=== PATIENT | male | born 2000 | race Caucasian/White ===

== ENCOUNTER 2023-07-31 11:08 | Emergency (ER) | payer OTHER ==
[~2023-07-31] VITALS: Ht 172.7 cm; Wt 74.8 kg
[2023-07-31 11:38] VITALS: BP 119/73; PULSE 76; RESP 15; TEMP 98; O2SAT 98
[2023-07-31] MEDS ORDERED: IBUPROFEN 400 MG TAB PO ONE (12:45)
[2023-07-31 15:00] VITALS: BP 119/73; PULSE 76; RESP 15; TEMP 98; O2SAT 98
== END 2023-07-31 15:00 | disposition home or self-care (01) ==
LOC: EDSEX 11:08 → MED 11:08
DX: R07.89 Other chest pain (principal); R10.9 Unspecified abdominal pain; M54.2 Cervicalgia; R51.9 Headache, unspecified; V89.2XXA Person injured in unspecified motor-vehicle accident, traffic, initial encounter; Y93.89 Activity, other specified; Y92.89 Other specified places as the place of occurrence of the external cause; Y99.8 Other external cause status
CPT/HCPCS: 71250; 99284